=== PATIENT | male | born 1960 | race Caucasian/White ===

== ENCOUNTER 2018-08-26 15:41 | Inpatient (IN) | payer MEDICARE ==
[2018-08-26] MEDS ORDERED: SODIUM CHLORIDE 0.9% 1,000 ML IV STA (16:25)
[2018-08-26] MEDS ORDERED: SODIUM CHLORIDE 0.9% 500 ML 500 ML IV STA (16:25)
--- NOTE | 2018-08-26 16:33 | ED ---
Weakness HPI - General Chief complaint: Weakness Stated complaint: Poss bowel obstruction Time Seen by Provider: 08/26/18 16:15 Source: patient Mode of arrival: ambulatory Limitations: no limitations - History of Present Illness Initial comments: This 58-year-old white male presents with a complaint of generalized weakness. This apparently has been present for over 6 months. He is had decreased appetite and weight loss. He has lost approximately 50-60 pounds in the last 3 months. He states that he developed abdominal pain after eating. This is diffuse in nature. He does relate that he has a remote history of a crush injury to his leg. 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 He has been weak to the point where he cannot ambulate with crutches anymore. He states that he utilizes a rolling chair at home to get around. He denies any cough or shortness of breath. There is no fevers or chills. No other complaints or modifying factors. - Related Data Home Medications Medication Instructions Recorded Confirmed Lisinopril 20 mg PO DAILY 08/26/18 08/26/18 Morphine Sulfate ER [Ms Contin] 30 mg PO BID 08/26/18 08/26/18 Simvastatin [Zocor] 40 mg PO DAILY 08/26/18 08/26/18 Allergies Allergy/AdvReac Type Severity Reaction Status Date / Time No Known Allergies Allergy Verified 08/26/18 16:33 Review of Systems ROS Statement: Those systems with pertinent positive or pertinent negative responses have been documented in the HPI. ROS Other: All systems not noted in ROS Statement are negative. Past Medical History Past Medical History: Hyperlipidemia, Hypertension Additional Past Medical History / Comment(s): crush injury left leg History of Any Multi-Drug Resistant Organisms: None Reported Additional Past Surgical History / Comment(s): left leg repaired Past Psychological History: No Psychological Hx Reported Smoking Status: Current every day smoker Past Alcohol Use History: None Reported Past Drug Use History: None Reported General Exam - General Exam Comments Initial Comments: GENERAL: The patient appears cachectic and malnourished. VITAL SIGNS: Heart rate, blood pressure, respiratory rate reviewed as recorded in nurse's notes. EYES: Pupils are round and reactive. Extraocular movements are intact. No conjunctival / lid redness or swelling. ENT: No external evidence of injury, swelling, or ecchymosis. Airway is patent. Throat is clear. NECK: Nontender. No swelling or evidence of injury. No subcutaneous emphysema. Trachea is midline. No thyroid mass. HEART: Regular rate and rhythm. Good peripheral pulses. LUNGS/CHEST: Breath sounds clear and equal bilaterally. No rales, rhonchi, or wheezes. No ecchymosis, subcutaneous emphysema, or tenderness. ABDOMEN: Mild diffuse tenderness. No palpable masses or organomegaly. No peritoneal signs. No abdominal wall swelling or ecchymosis. EXTREMITIES: No extremity tenderness. Normal muscle tone and function. No thoracolumbar tenderness. NEUROLOGIC: Sensation is grossly intact. Cranial nerve exam reveals face is symmetrical, tongue is midline, speech is clear. Weakness noted to bilateral upper extremities which is equal. SKIN: No abrasions or ecchymosis is noted. No induration or masses noted. PSYCHIATRIC: Alert and oriented. Appropriate behavior and judgment. Limitations: no limitations Course Vital Signs 08/26/18 08/26/18 08/26/18 15:46 16:19 16:30 Temperature 98.2 F Pulse Rate 68 86 Respiratory 18 27 H 21 Rate Blood Pressure 134/81 134/106 O2 Sat by Pulse 94 L Oximetry 08/26/18 08/26/18 08/26/18 17:00 17:30 18:00 Temperature Pulse Rate 77 76 Respiratory 34 H 36 H Rate Blood Pressure 103/91 106/84 O2 Sat by Pulse 99 Oximetry 08/26/18 08/26/18 18:30 19:00 Temperature Pulse Rate 75 67 Respiratory 19 20 Rate Blood Pressure 92/79 96/70 O2 Sat by Pulse Oximetry Medical Decision Making - Medical Decision Making The patient was seen and examined. All diagnostics were reviewed. An EKG was done which shows a normal sinus rhythm at a rate of 84. There is no acute ST-T wave changes identified. The IA intervals 140, QRS duration is 80, and the QTC intervals 425. The laboratory is unremarkable. The computed tomography scan of the brain and chest x-ray does not show any acute processes. The computed tomography scan of the abdomen and pelvis shows evidence of a mass in the liver. The radiologist seems to think as though this may be related to a cavernous hemangioma but feels as though a MRI would be necessary for further evaluation. The exact cause of his symptoms is not definitively determined. It appears that he has significantly declined over the last 6 months. He is down to 57 kg and is apparently lost over 60 pounds in 3 months. He looks quite cachectic. He is weak to the point where he cannot ambulate. He states that he cannot take care of himself at home. He may need further workup to rule out any other etiologies or cancer that could be potentially causing his symptomatology. He may need placement. The case is discussed with Dr. Cano and he is agreeable to observation admission. - Lab Data Result diagrams: 08/26/18 16:43 08/26/18 16:43 Lab Results 08/26/18 08/26/18 08/26/18 Range/Units 16:43 16:43 16:43 WBC 7.5 (3.8-10.6) k/uL RBC 5.19 (4.30-5.90) m/uL Hgb 15.4 (13.0-17.5) gm/dL Hct 48.5 (39.0-53.0) % MCV 93.5 (80.0-100.0) fL MCH 29.7 (25.0-35.0) pg MCHC 31.8 (31.0-37.0) g/dL RDW 12.9 (11.5-15.5) % Plt Count 323 (150-450) k/uL Neutrophils % 65 % Lymphocytes % 27 % Monocytes % 5 % Eosinophils % 1 % Basophils % 0 % Neutrophils # 4.8 (1.3-7.7) k/uL Lymphocytes # 2.0 (1.0-4.8) k/uL Monocytes # 0.4 (0-1.0) k/uL Eosinophils # 0.1 (0-0.7) k/uL Basophils # 0.0 (0-0.2) k/uL PT 9.8 (9.0-12.0) sec INR 1.0 (<1.2) APTT 22.3 (22.0-30.0) sec Sodium 137 (137-145) mmol/L Potassium 4.9 (3.5-5.1) mmol/L Chloride 98 (98-107) mmol/L Carbon Dioxide 29 (22-30) mmol/L Anion Gap 10 mmol/L BUN 16 (9-20) mg/dL Creatinine 0.67 (0.66-1.25) mg/dL Est GFR (CKD-EPI)AfAm >90 (>60 ml/min/1.73 sqM) Est GFR (CKD-EPI)NonAf >90 (>60 ml/min/1.73 sqM) Glucose 96 (74-99) mg/dL Calcium 10.2 (8.4-10.2) mg/dL Phosphorus 3.6 (2.5-4.5) mg/dL Magnesium 2.1 (1.6-2.3) mg/dL Total Bilirubin 0.6 (0.2-1.3) mg/dL AST 31 (17-59) U/L ALT 41 (21-72) U/L Alkaline Phosphatase 77 (38-126) U/L Total Protein 6.9 (6.3-8.2) g/dL Albumin 4.4 (3.5-5.0) g/dL TSH 1.410 (0.465-4.680) mIU/L Disposition Clinical Impression: Weakness, Malnourished, Weight loss, Abdominal pain, Decreased appetite, Inability to walk, Liver lesion Disposition: ADMITTED IP TO THIS HOSP Condition: Fair Time of Disposition: 19:38
[2018-08-26 16:57] LABS: Basophils % (A) 0 %; Eosinophils # (A) 0.1 k/uL (0-0.7); Eosinophils % (A) 1 %; HCT 48.5 % (39.0-53.0); HGB 15.4 gm/dL (13.0-17.5); Lymphocytes % (A) 27 %; MCH 29.7 pg (25.0-35.0); MCHC 31.8 g/dL (31.0-37.0); MCV 93.5 fL (80.0-100.0); Mean Platelet Volume 6.4; Monocytes # (A) 0.4 k/uL (0-1.0); Monocytes % (A) 5 %; Neutrophils # (A) 4.8 k/uL (1.3-7.7); Neutrophils % (A) 65 %; Platelet Count 323 k/uL (150-450); RBC 5.19 m/uL (4.30-5.90); RDW 12.9 % (11.5-15.5); WBC 7.5 k/uL (3.8-10.6)
[2018-08-26 17:06] LABS: ALT 41 U/L (21-72); AST 31 U/L (17-59); Albumin 4.4 g/dL (3.5-5.0); Alkaline Phosphatase 77 U/L (38-126); Anion Gap 10 mmol/L; Blood Urea Nitrogen 16 mg/dL (9-20); Calcium 10.2 mg/dL (8.4-10.2); Carbon Dioxide 29 mmol/L (22-30); Chloride 98 mmol/L (98-107); Glucose 96 mg/dL (74-99); Magnesium 2.1 mg/dL (1.6-2.3); Phosphorus 3.6 mg/dL (2.5-4.5); Potassium 4.9 mmol/L (3.5-5.1); Sodium 137 mmol/L (137-145); Total Bilirubin 0.6 mg/dL (0.2-1.3); Total Protein 6.9 g/dL (6.3-8.2)
[2018-08-26 17:13] LABS: Partial Thromboplastin Time 22.3 sec (22.0-30.0); Prothrombin Time 9.8 sec (9.0-12.0)
--- NOTE | 2018-08-26 17:49 | XR ---
EXAMINATION: XR chest 2V DATE AND TIME: 08/26/2018 5:34 PM CLINICAL INDICATION: Weakness TECHNIQUE: PA and lateral COMPARISON: None. FINDINGS: The lungs are clear. The pleural spaces are negative. The cardiac silhouette is not enlarged. The remainder of the mediastinal silhouette is unremarkable. The skeletal structures and soft tissues are negative for acute findings. IMPRESSION: NO ACUTE PROCESS.
--- NOTE | 2018-08-26 17:52 | CT ---
EXAMINATION: CT brain wo con DATE AND TIME: 08/26/2018 5:36 PM CLINICAL INDICATION: Weakness. TECHNIQUE: Standard departmental protocol. COMPARISON: None. FINDINGS: The calvarium is intact. There is no intracranial hemorrhage. There is no intracranial mass or mass effect. No definite new intra-axial or extra-axial attenuation defect. The paranasal sinuses, middle ear cavities, and mastoid sinus air cells are clear. The orbits are unremarkable. IMPRESSION: NO ACUTE PROCESS.
--- NOTE | 2018-08-26 18:02 | CT ---
EXAMINATION TYPE: CT abdomen pelvis w con DATE OF EXAM: 08/26/2018 COMPARISON: None HISTORY: Weakness, constipation, decreased appetite and 60lb weight loss over past several months. CT DLP: 337.6 mGycm. Automated exposure control for dose reduction was used. TECHNIQUE: Helical acquisition of images was performed from the lung bases through the pelvis. CONTRAST: Performed without Oral Contrast and with IV Contrast, patient injected with 100 mL of Isovu e 300. FINDINGS: LUNG BASES: No significant abnormality is appreciated. LIVER/GB: At the dome of the diaphragm high in the posterior segment right hepatic lobe is a 3 cm low -attenuation lobulated lesion with peripheral puddling of contrast. This likely represents incidental cavernous hemangioma which can be proven using MRI. Liver is otherwise unremarkable. Biliary tree ne gative. PANCREAS: No significant abnormality is seen. SPLEEN: No significant abnormality is seen. ADRENALS: No significant abnormality is seen. KIDNEYS: No significant abnormality is seen. FREE AIR: No free air is visualized. RETROPERITONEAL ADENOPATHY: None visualized REPRODUCTIVE ORGANS: No significant abnormality is seen URINARY BLADDER: No significant abnormality is seen. PELVIC ADENOPATHY: None visualized. OSSEOUS STRUCTURES: No significant abnormality is seen. BOWEL: No significant abnormality is seen. VASCULATURE: No acute findings. IMPRESSION: 1) NO ACUTE PROCESS. 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 THIS CAN BE PROVEN WITH MRI.
[2018-08-26] MEDS ORDERED: ONDANSETRON 4 MG/2 ML VIAL IVP PRN (19:38)
[2018-08-26] MEDS ORDERED: ACETAMINOPHEN TAB 325 MG TAB PO PRN (19:38)
[2018-08-26 19:40] LABS: Appearance,Urine Clear (Clear); Bilirubin,Urine Negative (Negative); Blood,Urine Trace (Negative); Color,Urine Yellow; Glucose,Urine (UA) Negative (Negative); Hyaline Casts,Urine 1 /lpf (0-2); Ketones,Urine 1+ (Negative); Leukocyte Esterase,Urine Negative (Negative); Mucus,Urine Occasional /hpf; Nitrite,Urine Negative (Negative); PH, Urine 5.5 (5.0-8.0); Protein,Urine Trace (Negative); RBC,Urine 2 /hpf (0-5); Specific Gravity,Urine 1.044 (1.001-1.035); Squamous Epithelial Cell,Urine <1 /hpf (0-4); Urobilinogen,Urine <2.0 mg/dL (<2.0); WBC,Urine 1 /hpf (0-5)
[2018-08-26] MEDS ORDERED: NALOXONE 0.4 MG/ML 1 ML VIAL IV PRN (20:38)
[2018-08-26] MEDS ORDERED: MELATONIN 3 MG TABLET PO PRN (20:38)
[2018-08-26] MEDS ORDERED: HYDROcodone/APAP 5-325MG 1 EACH TAB PO PRN (20:38)
[2018-08-26] MEDS ORDERED: SENNOSIDES 8.6 MG TAB PO PRN (23:38)
--- NOTE | 2018-08-27 00:06 | P.HPIM ---
History of Present Illness H&P Date: 08/26/18 Chief Complaint: generalized progressive weakness, GI upset Patient presented to the hospital today due to progressive overall weakness, patient over the past 8 weeks has deteriorated significantly and became unable to ambulate associated with frequent falls due to severely progressive weakness of his right lower extremity. Patient also admitted that he's been having GI upset for over a year now every time he eats will feel abdominal discomfort for which she started to avoid food , he is eating very low calories very little amount of food to avoid the need to go to the bathroom. He reports that he is constipated most of the time but denies any GI bleeding or vomiting. Ports that he had colonoscopy done 10 years ago and reported to be normal Patient adds that he had a significant crush injury of his left lower extremity at work back in the . However over the past few years he starting having progressive muscle weakness and dystrophy of the muscles of his upper and lower extremities up until couple months ago he was able to ambulate using crutches however he was told that the crutches has caused nerve injury in his axillary plexus resulting in contractures and dystrophy and wasting of the muscles of his hands. Over the past 2 months he noticed progressive weakness of his good leg the right leg resulting in difficulty in ambulating or climbing any steps he needs to climb 5 steps to get into his house resulting in frequent falling. He reports that over the past 8 weeks he's been deteriorating very fast and he feels that the end is near. He otherwise denies any fevers or chills denies any memory problems denies any difficulties with speech or swallowing he denies any sensory changes or focal sensory deficits. He denies any back injury or head injury. He denies any nausea or vomiting. Denies any headache fevers or chills. Denies any coughing or hemoptysis or any GI bleeding. I had prolonged discussion with the patient I suspect that the patient might be having ALS, and will offer him neurologic evaluation. He is also given a have GI evaluation for possible scoping and to evaluate the incidental finding of liver mass on CAT scan which is suspected to be a hemangioma. Patient will also be offered PT/OT evaluation, he indicated that he is not interested in placement at long-term but he would be interested in home care as he is unable to perform any of the activities of daily living and his works most of the time and he is home alone. Review of Systems Pertinent positives as noted in HPI. All other systems were reviewed and are negative Past Medical History Past Medical History: Hyperlipidemia, Hypertension Additional Past Medical History / Comment(s): crush injury left leg History of Any Multi-Drug Resistant Organisms: None Reported Additional Past Surgical History / Comment(s): left leg repaired Past Psychological History: No Psychological Hx Reported Smoking Status: Current every day smoker Past Alcohol Use History: None Reported Past Drug Use History: None Reported - Past Family History Family Additional Family Medical History / Comment(s): Both parents of very old age and healthy Medications and Allergies Home Medications Medication Instructions Recorded Confirmed Type Lisinopril 20 mg PO DAILY 08/26/18 08/26/18 History Morphine Sulfate ER [Ms Contin] 30 mg PO BID 08/26/18 08/26/18 History Simvastatin [Zocor] 40 mg PO DAILY 08/26/18 08/26/18 History Allergies Allergy/AdvReac Type Severity Reaction Status Date / Time No Known Allergies Allergy Verified 08/26/18 16:33 Physical Exam Vitals: Vital Signs Temp Pulse Resp BP Pulse Ox 08/26/18 19:00 67 20 96/70 08/26/18 18:30 75 19 92/79 08/26/18 18:00 76 36 H 08/26/18 17:30 106/84 08/26/18 17:00 77 34 H 103/91 99 08/26/18 16:30 86 21 134/106 08/26/18 16:19 27 H 08/26/18 15:46 98.2 F 68 18 134/81 94 L Intake and Output 08/26/18 08/26/18 08/26/18 06:59 14:59 22:59 Other: Weight 57.153 kg Constitutional: No acute distress, conversant, pleasant, cachectic Eyes: Anicteric sclerae, moist conjunctiva, no lid-lag Pupils equal round reactive to light ENMT: NC/AT Oropharynx clear, no erythema, exudates Neck: Supple, FROM, no masses, or JVD No carotid bruits No thyromegaly Lungs: Clear to auscultation Clear to percussion Normal respiratory effort, no accessory muscle use Cardiovascular: Heart regular in rate and rhythm, No murmurs, gallops, or rubs No peripheral edema Abdominal: Soft Nontender, no guarding, rebound or rigidity Abdomen moving with respiration Normoactive bowel sounds No hepatomegaly, No splenomegaly No palpable mass No abdominal wall hernia noted Skin: Normal temperature, tone, texture, turgor No induration No subcutaneous nodules No rash, lesions No ulcers Extremities: Contractures in both hands, muscle wasting and hearing over the dorsum of the hand, wasting of the muscles of lower extremities. No digital cyanosis No clubbing Pedal pulses intact and symmetrical Radial pulses intact and symmetrical No calf tenderness Psychiatric: Alert and oriented to person, place and time Appropriate affect fair judgment Neuro Muscles Strength 2/5 in distal muscle groups of lower extremities and 3 out of 5 in proximal muscle groups of lower extremities . 3 out of 5 in distal muscle groups of upper extremities and 4 out of 5 in proximal muscle groups of upper extremities Sensation to light touch grossly present throughout, reflexes are brisk throughout Cranial nerves II-XII grossly intact No focal sensory deficits Speech is intact, tongue movement is intact Lymphatics: no palpable cervical or supraclavicular , or inguinal lymph nodes Results CBC & Chem 7: 08/26/18 16:43 08/26/18 16:43 Labs: Abnormal Lab Results - Last 24 Hours (Table) 08/26/18 Range/Units 19:04 Ur Specific [place] 1.044 H (1.001-1.035) Urine Protein Trace H (Negative) Urine Ketones 1+ H (Negative) Urine Blood Trace H (Negative) Urine Mucus Occasional H (None) /hpf Assessment and Plan Assessment: 58 year old male with history of hypertension and left lower extremity RSD, admitted under observation with anticipated length of stay ,<48 hours for significant weight loss, generalized weakness, GI upset. patient has been having progressive muscle wasting and weakness in his upper and lower extremities with frequent falling over the past 6 weeks, I thought he clinically has ALS. Patient also reports GI upset, and significant weight loss due to poor apetite, his last colonoscopy was 10 years ago which he reports was normal. consitpation could be due to morphine PO, which he takes for RSD. patient is offered neuro and GI evaluation. PT/OT evaluation he refuses placement , and preferred home health care, he would benefit from home supplies like hospital bed and bedside comode, he is unable to perform any of his ADL Plan: progressive muscle dystrophy and weakness suspected ALS reflexes are brisk sensation intact contractures of bilateral hands, distal muscle weakness in upper extremities distal more than proximal muscle weakness in right lower extremity muscle wasting weight loss fall precautions turning in bed and sitting up in chair PT/OT evaluation social worker health services consult to arrange for home health care, patient refused placement patient will require supplies like hospital bed, bedside comode reflex sympathetic dysrophy left LE continue morphine PO (home dose) constipation add stool softners hypertension currently controlled suspected liver hemangioma radiology suggested liver MRI , not ordered GI eval DVT PPX lovenox SC significant weight loss, due to Poor PO intake , r/o malignancy Cscope 10 years ago , patient reported was wnl denies gi bleeding, denies hemoptysis or chronic cough start megace add ensure avoid refeeding syndrome , follow up electrolytes, PO4, Mg, Ca, K Surrogate decision-maker: patient CODE STATUS:full code Discussed with: Patient, ER, RN Anticipated discharge: <[address]: home with home care, will need hospital bed, and bed side comode, wheel chair (scooter) A total of 90 minutes were spent on the care of this complex patient more than 50% of the time was spent in counseling and care coordination.
[2018-08-27] MEDS: PANTOPRAZOLE 40 MG/10 ML VIAL IV SCH ×2 (00:09→09:19)
[2018-08-27 07:19] LABS: Basophils % (A) 1 %; Eosinophils # (A) 0.2 k/uL (0-0.7); Eosinophils % (A) 4 %; HCT 40.5 % (39.0-53.0); HGB 12.7 gm/dL (13.0-17.5); Lymphocytes # (A) 2.6 k/uL (1.0-4.8); Lymphocytes % (A) 43 %; MCH 29.5 pg (25.0-35.0); MCHC 31.3 g/dL (31.0-37.0); MCV 94.1 fL (80.0-100.0); Mean Platelet Volume 6.7; Monocytes # (A) 0.4 k/uL (0-1.0); Monocytes % (A) 6 %; Neutrophils # (A) 2.7 k/uL (1.3-7.7); Neutrophils % (A) 45 %; Platelet Count 255 k/uL (150-450); RDW 12.9 % (11.5-15.5)
[2018-08-27 07:29] LABS: ALT 42 U/L (21-72); AST 25 U/L (17-59); Albumin 3.3 g/dL (3.5-5.0); Alkaline Phosphatase 50 U/L (38-126); Anion Gap 5 mmol/L; Blood Urea Nitrogen 12 mg/dL (9-20); Calcium 9.4 mg/dL (8.4-10.2); Carbon Dioxide 30 mmol/L (22-30); Chloride 102 mmol/L (98-107); Glucose 80 mg/dL (74-99); Potassium 4.3 mmol/L (3.5-5.1); Sodium 137 mmol/L (137-145); Total Bilirubin 0.5 mg/dL (0.2-1.3); Total Protein 5.5 g/dL (6.3-8.2)
[2018-08-27] MEDS: LISINOPRIL 20 MG TAB PO SCH (09:18)
[2018-08-27] MEDS: ATORVASTATIN 20 MG TAB PO SCH (09:18)
[2018-08-27] MEDS: MORPHINE SULFATE ER 30 MG TABLET PO SCH ×2 (09:18→21:07)
[2018-08-27] MEDS: DOCUSATE 100 MG CAP PO SCH ×2 (09:18→21:07)
[2018-08-27] MEDS: ENOXAPARIN 40 MG/0.4 ML SYRINGE SQ SCH (09:19)
[2018-08-27 10:45] VITALS: BMI 16.2
[2018-08-27 11:28] LABS: C Reactive Protein <5.0 mg/L (<10.0); Creatine Kinase 83 U/L (55-170); LDH 315 U/L (313-618)
--- NOTE | 2018-08-27 12:01 | P.PN ---
Subjective Progress Note Date: 08/27/18 Principal diagnosis: weakness and weight loss Patient is a 58-year-old male known medical history of dyslipidemia, hypertension, crush injury to left leg resulting in RSD who presented to the ER with complaints of frequent falls, severe progressive weakness, and inability to care for himself. In the ER he underwent an extensive evaluation. His initial vital signs were within normal limits. Laboratory analysis is unremarkable. CT of abdomen and pelvis demonstrated a 3 cm right hepatic lobe lesion likely cavernous hemangioma, patient states that he was told he had a hemangioma when he had his crush injury [address] brain and chest x-ray were unremarkable. EKG showed no changes. Patient was admitted for further workup of his progressive weakness. He also has reported a 60 pound weight loss despite what he said it is a normal appetite. GI and neurology have been consulted. Patient seen and examined at bedside with his life partner, Kezia, present. He denies any pain. Weakness is the same as yesterday. No nausea or vomiting. Slightly low appetite. Frustrated that stuck in the bed earlier today. We have a long discussion. He states that initially his symptoms started in 2016 with bilateral upper extremity weakness. At that point in time. EMG performed and subsequently was seen by a neurosurgeon. He states they told him he had a brachial plexus injury and asked him to stop using his crutches. Since then he has been himself off his crutches and mostly stayed in a rolling dining chair at home. However since the summertime he has. Had progressive weakness and weight loss. He has also had progressive contractures of his fingers, loss of muscle strength in his hands, and inability to get himself out of bed. He currently has to sleep on the couch. He states he had clear and home care recently who suggested multiple assistive devices as he is unable to feed himself, take himself to the bathroom, or perform ADLs. However they sent a letter to his workers comp which has yet to be answered. He is unable to care for himself at home currently and no longer has home health care coming out to see him. We discussed that he likely will need an extensive workup to figure out why he is having muscle atrophy and weakness. I also discussed with him the concern that this could be something like ALS. We will proceed with an MRI today and a neurology consultation. He is also nervous about his weight loss which I explained could be a symptom of his larger disease process however we will have gastroenterology evaluate him. He states he knows he had a hemangioma when he suffered his crush injury. He is no longer able to get out of the house to attend doctor's appointments. I discussed with him going with something like [facility] to have the doctors that can come out and see him. He does not want to go to a penitentiary home or long- term halfway. He states that if he is diagnosed with a chronic debilitating illness he would not want to be kept alive like that area once he neurology sees him we will discuss further treatment options. I also spoke with case management to start getting information on getting him home assistive devices. He is unable to ambulate at this time, he is unable to get onto the toilet himself, he is using a rolling dining room chair all times to move around , he is unable to feed or dress himself. He is not able to sleep in his bed due to his profound debility and weakness. He will likely need multiple assistive devices including a toilet riser, bedside commode, shower chair, travel wheelchair, bed rails to assist with getting out of bed, possible lift, wheelchair ramp for at home. He also likely would benefit from a power wheelchair with the toggle device. Objective - Vital Signs Vital signs: Vital Signs Temp 97.6 F 08/27/18 04:42 Pulse 58 L 08/27/18 04:42 Resp 16 08/27/18 04:42 BP 101/59 08/27/18 04:42 Pulse Ox 97 08/27/18 04:42 Intake & Output 08/26/18 08/27/18 08/27/18 18:59 06:59 18:59 Intake Total 590 Balance 590 Weight 57.153 kg 54.5 kg Intake: Oral 590 Other: Voiding Method Urinal Urinal # Voids 2 - Exam General: chronically ill appearing, no distress, appears at stated age Derm: warm, dry Head: atraumatic, normocephalic, symmetric Eyes: EOMI, no lid lag, anicteric sclera Mouth: no lip lesion, mucus membranes dry Cardiovascular: S1S2 reg, no murmur, positive posterior tibial pulse bilateral, Lungs: decreased bs bilateral, no rhonchi, no rales , no accessory muscle use Abdominal: soft, nontender to palpation, no guarding, no appreciable organomegaly Ext: + gross muscle atrophy, no edema, + contractures of b/l hands Neuro: CN II-XI grossly intact, no focal neuro deficits, musce wasting b/l hands Psych: Alert, oriented, appropriate affect - Labs CBC & Chem 7: 08/27/18 06:34 08/27/18 06:34 Labs: Abnormal Lab Results - Last 24 Hours (Table) 08/26/18 08/27/18 08/27/18 Range/Units 19:04 06:34 06:34 Hgb 12.7 L (13.0-17.5) gm/dL Total Protein 5.5 L (6.3-8.2) g/dL Albumin 3.3 L (3.5-5.0) g/dL Ur Specific [place] 1.044 H (1.001-1.035) Urine Protein Trace H (Negative) Urine Ketones 1+ H (Negative) Urine Blood Trace H (Negative) Urine Mucus Occasional H (None) /hpf Assessment and Plan Assessment: Progressive symmetric upper and lower extremity weakness -Concern for ALS versus other demyelinating process -MRI brain -Consult neurology -Check ESR, CRP, LDH, and CPK of myopathy -PT/OT evaluation -Discussed with case management. Multiple devices needed as outlined in subjective portion of this note. Functional debility/ Inability to care for self -PT/OT eval -Case management - social work consult Severe protein calorie malnutrition with muscle wasting -Dietary consultation -Protein supplementation Hypertension -Continue with lisinopril Dyslipidemia -Continue with statin therapy Chronic pain -Continue with home morphine doses DVT prophylaxis: Lovenox Discussed with: Patient, nursing, significant other, case management Anticipated discharge: 48- 72 hours, will need safe discharge plan Anticipated discharge place: home with home health A total of [65] minutes was spent on the care of this complex patient more than 50% of the time was spent in counseling and care coordination.
[2018-08-27] MEDS ORDERED: NA PHOS,M-B/NA PHOS,DI-BA 133 ML ENEMA RECTAL ONE ×2 (14:00→16:30)
--- NOTE | 2018-08-27 17:58 | MR ---
EXAMINATION TYPE: MR brain wo con DATE OF EXAM: 08/27/2018 COMPARISON: CT brain dated 08/26/2018 HISTORY: Progressive weakness, CVA, Multiple Sclerosis TECHNIQUE: Multiplanar, multisequence images of the brain and brainstem is performed without IV contrast. Demye linating disease protocol with additional Sagittal Flair sequence performed. FINDINGS: Diffusion weighted images demonstrate no evidence of a recent infarct or other diffusion abnormality. There is no worrisome extra-axial fluid collection. The ventricular system and cisternal spaces ar e normal in size and appearance. Very mild periventricular T2/FLAIR hyperintensity is seen with no me asurable to minus lesions. White matter changes most pronounced in the periatrial white matter which is on sagittal FLAIR nonfat sat through 6 and 1 image 26 and axial flair image 15. The brain volume i s age appropriate. Midline structures demonstrate normal morphology other than a 7 mm pineal gland cyst. The craniocerv ical junction appears within normal limits.. The dural venous sinuses appear patent. The visualized sinuses are clear and the globes are intact. IMPRESSION: No evidence of acute infarct, dementia or mass effect. Very mild periventricular white ma tter change most pronounced in the periatrial white matter with no white matter plaques.
[2018-08-27 18:27] LABS: HIV 1 AB Non-Reactive (Non-Reactive); HIV AB P24 Non-Reactive (Non-Reactive); HIV P24 AG Non-Reactive (Non-Reactive)
--- NOTE | 2018-08-27 20:17 | P.CNNES ---
History of Present Illness Consult date: 08/27/18 Reason for Consult: This patient admitted with severe weakness and possible ALS. History of Present Illness: This patient is a 58-year-old right-handed white male who was admitted to [facility] yesterday with symptoms of worsening generalized weakness and multiple falls. Patient states that he has been having progressive weakness over the last 2 years. More recently in the last 6-8 weeks that fatigue and weakness as overcome his general health causing him great deal of concern. He follows with his primary care physician Dr. Dee and was seen in the medical clinic about 2 months ago. 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 Patient states he has been noticing progressive weakness in both his arms and legs. He is had multiple falls due to generalized weakness. He has a history of having suffered a crush injury about 20 years ago causing injury to his left foot and ankle. He suddenly developed RSD as a complication of this crush injury. More recently however he has noted significant weight loss over the last 6 months as well as ongoing weakness in his leg muscles. His who is at bedside today states that she has noted a progressive and rapid decline for this patient over the last few months. The patient was seen in the emergency room yesterday by Dr. Stout. Patient was found to have significant malnourishment as well as generalized weakness. He complained of inability to walk. According to his he was walking with crutches but even in the last month he has been unable to even ambulate with the assistance of crutches. She is attempting to get a power wheelchair for him to use. The patient denies any swallowing difficulties at this time. He does have some cough but denies any shortness of breath as well. Due to his significant decline the patient was admitted to the hospital for further evaluation. The patient was sent for a computed tomography scan of the brain which revealed no acute process. Patient was subtotally admitted to the hospital for further evaluation. He had a MRI of the brain performed today which revealed no evidence of acute infarction. The patient was seen yesterday by Dr. Greenfield in today by Dr. Haney and they have both brace the question of possible ALS as a diagnosis for this patient. Neurology was consulted today for further evaluation of this possible diagnosis. On further questioning the patient clearly states he has had significant weight loss in the last 6 months. He is also complained of increasing fasciculations involving both arm and leg and chest muscles on and off for the last 2 years. It is becoming more pronounced according to the patient and can be seen in the arms and legs especially. According to his he has lost about 60 pounds in weight since the beginning of the year. The patient has significant atrophy of his hand muscles. Close observation of the hand and arm muscles indicate fasciculations in the interossei muscles of the hand as well as biceps and triceps muscles. Patient is also noted to have fasciculations in both lower extremities. We have reviewed this patient's overall presentation and current neurological findings and have raised the question of possible amyotrophic lateral sclerosis (i.e., Marilyn Gehrig's Disease). This patient's neurological exam findings and history are highly suggesting this is a probable diagnosis for him. We are recommending the patient to be referred to the ALS Clinic at [facility] early next week for a more extensive evaluation for this condition an EMG study to confirm the diagnosis. We would also recommend the patient to have an MRI of the cervical spine to be done as soon as possible for further assessment. We have described to the patient to the best of our ability the condition of ALS and its presentation. To be definitive in this diagnosis however he would require referral to [facility] ALS clinic and a multi- specialty approach for this diagnosis. We have discussed these findings in detail today with the patient and his at bedside. All of their questions were answered. Patient is aware of our recommendations and is in full agreement with our workup at this time. His overall prognosis at this time remains guarded. Neurology is now been consulted for further evaluation and recommendations. Review of Systems Constitutional: Reports anorexia, Reports weight loss, Denies chills, Denies fever Eyes: denies blurred vision, denies pain Ears, nose, mouth and throat: Denies headache, Denies sore throat Cardiovascular: Denies chest pain, Denies shortness of breath Respiratory: Denies cough Gastrointestinal: Denies abdominal pain, Denies diarrhea, Denies nausea, Denies vomiting Musculoskeletal: Denies myalgias Integumentary: Denies pruritus, Denies rash Neurological: Reports gait dysfunction, Reports lack of coordination, Reports motor disturbance, Reports sensory deficit, Denies numbness, Denies weakness Psychiatric: Denies anxiety, Denies depression Endocrine: Denies fatigue, Denies weight change Past Medical History Past Medical History: Hyperlipidemia, Hypertension Additional Past Medical History / Comment(s): crush injury left leg History of Any Multi-Drug Resistant Organisms: None Reported Past Surgical History: Orthopedic Surgery Additional Past Surgical History / Comment(s): left leg repaired Past Anesthesia/Blood Transfusion Reactions: No Reported Reaction Past Psychological History: No Psychological Hx Reported Smoking Status: Current every day smoker Past Alcohol Use History: None Reported Past Drug Use History: None Reported - Past Family History Mother Family Medical History: No Reported History Additional Family Medical History / Comment(s): healthy and still living at 92 Father Family Medical History: No Reported History Additional Family Medical History / Comment(s): passes at 84 Family Additional Family Medical History / Comment(s): Both parents of very old age and healthy Medications and Allergies Home Medications Medication Instructions Recorded Confirmed Type Lisinopril 20 mg PO DAILY 08/26/18 08/26/18 History Morphine Sulfate ER [Ms Contin] 30 mg PO BID 08/26/18 08/26/18 History Simvastatin [Zocor] 40 mg PO DAILY 08/26/18 08/26/18 History Allergies Allergy/AdvReac Type Severity Reaction Status Date / Time No Known Allergies Allergy Verified 08/26/18 16:33 Physical Examination - Vital Signs Vital Signs: Vital Signs Temp Pulse Pulse Resp BP BP Pulse Ox 08/27/18 15:33 70 16 08/27/18 15:01 98 F 70 16 123/79 98 08/27/18 04:42 97.6 F 58 L 16 101/59 97 08/26/18 23:30 97.8 F 84 16 131/83 98 08/26/18 22:00 70 33 H 92/68 08/26/18 21:00 71 22 87/58 08/26/18 20:00 64 24 114/81 08/26/18 19:00 67 20 96/70 08/26/18 18:30 75 19 92/79 08/26/18 18:00 76 36 H 08/26/18 17:30 106/84 Intake and Output 08/27/18 08/27/18 08/27/18 06:59 14:59 22:59 Intake Total 590 600 Balance 590 600 Intake: Oral 590 600 Other: Voiding Method Urinal Urinal Urinal # Voids 2 3 3 Weight 54.5 kg 54.5 kg - Constitutional General appearance: average body habitus, cooperative - EENT EENT: PERRL, mucous membranes moist - Respiratory Respiratory: lungs clear, normal breath sounds - Cardiovascular Cardiovascular: regular rate, normal S1, normal S2 Extremities: no peripheral edema bilaterally - Gastrointestinal Gastrointestinal: normoactive bowel sounds - Integumentary Integumentary: normal - Neurologic Cranial nerve examination: PERRL, EOMI, VFF, V1/V2/V3 grossly intact, face symmetric, tongue midline, intact gag reflex, intact corneal reflex, normal palatal elevation Speech examination: intact Sensorimotor examination: intact Motor examination - right side: 11/29: biceps, triceps, wrist flexion, wrist extension, print support specialist, hip flexors, knee extensors, dorsiflexion, toe extension (EHL) , plantarflexion Motor examination - left side: 11/29: biceps, triceps, wrist flexion, wrist extension, print support specialist, hip flexors, knee extensors, dorsiflexion, toe extension (EHL) , plantarflexion Detailed sensory examination: intact Reflex and gait examination: intact Reflexes: 2+: ankle, bicep, knee, tricep Cerebellar examination: ataxia - Musculoskeletal Musculoskeletal: no pain - Psychiatric Psychiatric: mood/affect appropriate, cooperative Results - Laboratory Findings CBC and BMP: 08/27/18 06:34 08/27/18 06:34 Abnormal Lab Findings: Abnormal Labs 08/26/18 08/27/18 08/27/18 19:04 06:34 06:34 Hgb 12.7 L Total Protein 5.5 L Albumin 3.3 L Ur Specific [place] 1.044 H Urine Protein Trace H Urine Ketones 1+ H Urine Blood Trace H Urine Mucus Occasional H Assessment and Plan (1) Motor neuron disease Current Visit: Yes Status: Acute Code(s): G12.20 - MOTOR NEURON DISEASE, UNSPECIFIED SNOMED Code(s): 60234503 (2) Muscle atrophy Current Visit: Yes Status: Acute Code(s): M62.50 - MUSCLE WASTING AND ATROPHY, NEC, UNSP SITE SNOMED Code(s): 45060966 (3) Inability to walk Current Visit: Yes Status: Acute Code(s): R26.2 - DIFFICULTY IN WALKING, NOT ELSEWHERE CLASSIFIED SNOMED Code(s): 021164236 (4) Weakness Current Visit: Yes Status: Acute Code(s): R53.1 - WEAKNESS SNOMED Code(s) : 45690428 (5) Weight loss Current Visit: Yes Status: Acute Code(s): R63.4 - ABNORMAL WEIGHT LOSS SNOMED Code(s): 62217076 Plan: This patient is a 58-year-old male who is been noted to have progressive generalized muscle weakness and muscle atrophy over the last 2 years. More recently in 6 months he has shown a very rapid decline in weight loss as well as inability to ambulate. He decided to come to the hospital yesterday for further evaluation. He is seen in neurology consultation today and his neurological exam is highly suggesting motor neuron disease such as ALS. We have recommended the patient to be evaluated in the ALS Clinic at [facility] for further confirmation of this suspicion and possible diagnosis. The patient underwent MRI of the brain which failed to reveal any acute changes. No evidence of acute infarction. We have recommended a MRI of the cervical spine to be done for further assessment. This patient's neurological exam and clinical findings of significant muscle wasting and muscle atrophy along with whole body fasciculations and profound weakness is highly suggesting a diagnosis of ALS. We have explained the natural history of this disease in detail to the patient and his at bedside. We are recommending the patient to have a evaluation in the ALS clinic at [facility] as soon as possible next week further more definitive workup for this condition including EMG study. We've also encouraged the to seek out social work and discharge planning to obtain a power wheelchair which would be very helpful for this patient. We will give further recommendations pending his MRI of the cervical spine results. In the meantime patient may continue with current treatment plans but really needs further workup and confirmation of this possible diagnosis at [facility] as soon as possible. His overall prognosis at this time remains very guarded. Case was discussed at length with the patient and his at bedside. All of their questions were answered. They are aware of his guarded condition. Time with Patient: Greater than 30
--- NOTE | 2018-08-28 02:46 | P.CONS ---
History of Present Illness - Reason for Consult Consult date: 08/27/18 Constipation, weight lossstar greenfield Requesting physician: Gissell Greenfield - Chief Complaint Weakness - History of Present Illness 58-year-old male with multiple medical comorbidities including the, hypertension and dyslipidemia who presents to the hospital with progressive weakness. Per the patient he has deteriorated significantly over the past 8 weeks. The patient reports a constellation of symptoms including decreased oral intake, which she attributes to a upset stomach after eating. He reports that he has epigastric discomfort after eating. Nausea reported but denies any vomiting. The patient also reports significant constipation which is likely attributed to his opiate use. He reports that he has been tried on multiple medications in the past including MiraLAX which she did not feel helped and [place] which the patient did not react to well. He reports very infrequent bowel movements. He denies any hematochezia or melena. His last colonoscopy was approximately 10 years ago. He has had significant weight loss describing approximately 50-60 pounds of weight loss over the past 3 months. Currently he is been seen in the hospital and evaluated by the neurology service. He also had a computed tomography scan on presentation which showed a likely liver hemangioma. Liver enzymes were essentially normal on presentation and hemoglobin was found to be 12.3. Review of Systems REVIEW OF SYSTEMS: CARDIO: Denies any chest pain or palpitations. PULMONARY: Denies any shortness of breath or wheezing. GENITOURINARY: No dysuria or hematuria. MUSCULOSKELETAL: Significant weakness, the patient is unable to ambulate with crutches as previously. SKIN: Denies any new rashes or lesions, jaundice or pallor. PSYCHIATRIC: Denies any new onset depression or anxiety. NEUROLOGY: Denies headache, bilateral contracted hands and limited mobility of legs with a prior crush injury noted. EARS: No tinnitus, discharge or new hearing loss. NOSE: No discharge or congestion. EYES: No pain in eyes or change in vision. CONSTITUTIONAL: He notes approximately a 60 pound weight loss. No fever, chills , night sweats. Past Medical History Past Medical History: Hyperlipidemia, Hypertension Additional Past Medical History / Comment(s): crush injury left leg History of Any Multi-Drug Resistant Organisms: None Reported Past Surgical History: Orthopedic Surgery Additional Past Surgical History / Comment(s): left leg repaired Past Anesthesia/Blood Transfusion Reactions: No Reported Reaction Past Psychological History: No Psychological Hx Reported Smoking Status: Current every day smoker Past Alcohol Use History: None Reported Past Drug Use History: None Reported - Past Family History Mother Family Medical History: No Reported History Additional Family Medical History / Comment(s): healthy and still living at 92 Father Family Medical History: No Reported History Additional Family Medical History / Comment(s): passes at 84 Family Additional Family Medical History / Comment(s): Both parents of very old age and healthy Medications and Allergies Home Medications Medication Instructions Recorded Confirmed Type Lisinopril 20 mg PO DAILY 08/26/18 08/26/18 History Morphine Sulfate ER [Ms Contin] 30 mg PO BID 08/26/18 08/26/18 History Simvastatin [Zocor] 40 mg PO DAILY 08/26/18 08/26/18 History Allergies Allergy/AdvReac Type Severity Reaction Status Date / Time No Known Allergies Allergy Verified 08/26/18 16:33 Physical Exam Vitals: Vital Signs Temp Pulse Resp BP Pulse Ox 08/27/18 15:33 70 16 08/27/18 15:01 98 F 70 16 123/79 98 08/27/18 04:42 97.6 F 58 L 16 101/59 97 Intake and Output 08/27/18 08/27/18 08/28/18 14:59 22:59 06:59 Intake Total 600 960 Balance 600 960 Intake: Oral 600 960 Other: Voiding Method Urinal Urinal Urinal # Voids 3 1 Weight 54.5 kg On physical examination, patient appears comfortable in no apparent distress. HEAD: Normocephalic, atraumatic. EYES: No scleral icterus. No conjunctival injection. MOUTH: No lesions, tongue midline. NECK: Trachea midline, no gross abnormalities. CHEST: Clear to auscultation with no wheezing or rhonchi appreciated. HEART: Regular rate and rhythm. ABDOMEN: Soft, and then. Bowel sounds are positive. No organomegaly. No guarding or rigidity. EXTREMITIES: No pedal edema, lower extremities thin, and contracted upper extremities with muscle wasting noted. SKIN: No rashes, no jaundice. NEUROLOGIC: Alert and oriented x3. Results CBC & Chem 7: 08/27/18 06:34 08/27/18 06:34 Labs: Abnormal Lab Results - Last 24 Hours (Table) 08/27/18 08/27/18 Range/Units 06:34 06:34 Hgb 12.7 L (13.0-17.5) gm/dL Total Protein 5.5 L (6.3-8.2) g/dL Albumin 3.3 L (3.5-5.0) g/dL CT scan - abdomen: report reviewed (Computed tomography scan of the abdomen showing a 3 cm lesion suggestive of a cavernous hemangioma) Assessment and Plan (1) Weight loss Narrative/Plan: 60 pound weight loss of unknown etiology, with patient reporting a prior colonoscopy approximately 10 years ago and a remote history of upper endoscopy. Denies any GI bleeding. Current Visit: Yes Status: Acute Code(s): R63.4 - ABNORMAL WEIGHT LOSS SNOMED Code(s): 14557801 (2) Abdominal pain Narrative/Plan: Reports epigastric discomfort and fullness after eating. Current Visit: Yes Status: Acute Code(s): R10.9 - UNSPECIFIED ABDOMINAL PAIN SNOMED Code(s): 31744736 (3) Liver lesion Narrative/Plan: 3 cm lesion on computed tomography scan suggestive of cavernous angioma. Current Visit: Yes Status: Acute Code(s): K76.9 - LIVER DISEASE, UNSPECIFIED SNOMED Code(s): 593021319 (4) Constipation due to opioid therapy Current Visit: Yes Status: Acute Code(s): K59.03 - DRUG INDUCED CONSTIPATION ; T40.2X5A - ADVERSE EFFECT OF OTHER OPIOIDS, INITIAL ENCOUNTER SNOMED Code(s) : 468509753321100 Plan: Supportive care Okay for diet Fleets enema ordered as patient reports constipation Will start bowel regimen depending on patient's bowel movements after enema Patient offered EGD and colonoscopy for evaluation of weight loss however does not feel he would be able to tolerate a prep at this time, he would like to have his constipation treated and then reevaluation for possible endoscopy Continue workup by neurology Thank you for allowing us to persist patient in the care of this patient we will continue to follow
[2018-08-28] MEDS: ATORVASTATIN 20 MG TAB PO SCH (08:16)
[2018-08-28] MEDS: LISINOPRIL 20 MG TAB PO SCH (08:16)
[2018-08-28] MEDS: DOCUSATE 100 MG CAP PO SCH ×2 (08:16→21:12)
[2018-08-28] MEDS: MORPHINE SULFATE ER 30 MG TABLET PO SCH ×2 (08:16→21:12)
[2018-08-28] MEDS: PANTOPRAZOLE 40 MG/10 ML VIAL IV SCH (08:17)
[2018-08-28] MEDS: ENOXAPARIN 40 MG/0.4 ML SYRINGE SQ SCH (08:17)
[2018-08-28] MEDS ORDERED: HYDROcodone/APAP 7.5-325MG 1 EACH TAB PO PRN (09:30)
[2018-08-28] MEDS ORDERED: ALPRAZolam 0.5 MG TAB PO PRN (09:30)
[2018-08-28] MEDS ORDERED: guaiFENesin 600 MG TABLET.ER PO PRN (10:05)
--- NOTE | 2018-08-28 10:21 | P.PN ---
Subjective Progress Note Date: 08/28/18 (Delayed charting patient seen at 0850) Principal diagnosis: weakness and weight loss Patient is a 58-year-old male known medical history of dyslipidemia, hypertension, crush injury to left leg resulting in RSD who presented to the ER with complaints of frequent falls, severe progressive weakness, and inability to care for himself. In the ER he underwent an extensive evaluation. His initial vital signs were within normal limits. Laboratory analysis is unremarkable. CT of abdomen and pelvis demonstrated a 3 cm right hepatic lobe lesion likely cavernous hemangioma, patient states that he was told he had a hemangioma when he had his crush injury [address] brain and chest x-ray were unremarkable. EKG showed no changes. Patient was admitted for further workup of his progressive weakness. He also has reported a 60 pound weight loss despite what he said it is a normal appetite. GI and neurology were consulted. Patient seen by neurology and concern for ALS. MRI with mild white matter periventricular changes. Patient seen and examined at bedside with his life partner, Kezia, present. States he is feeling terrible today. Complains of increased pain. Still having some nausea, doesn't like the food, doesn't like the bed. States he can' t move in the bed and it is making him anxious and upset. Worried about diagnosis of ALS. D/W Him F/U with ALS clinic. Wants to leave the hospital stay to receive MRI cervical spine, meet with social work in the morning, and get more information on community resources. That along discussion at that he will need close follow-up in order to get the device is he needs. They will need to continue to follow with his Worker's Comp. case in order to get more assistive devices. Understands the improtane of follow-up. Was reading on ALS and states that he has most of the symptoms, progressive weakness, contractures, weight loss, difficulty with controlling phlegm production, muscle wasting ect. Discussed prognosis and expected outcomes of care, new medications that can slow the progression of the disease, clinical trails, and symptoms management. Also discussed filing for power of immigration attorney and FMLA. Discussed purchasing additional help at home. Does not want to go to SNF and discussed with him that if disease progresses he may want to save days till later. Also upset with GI and does not want to see them again. Constipation resolved after enema. D/W patient that weight loss could be coming for nerodegenerative disease and work this up first if it does not appear to be coming from this then consider colonoscopy and age appropriate cancer screening. Objective - Vital Signs Vital signs: Vital Signs Temp 97.7 F 08/28/18 05:00 Pulse 76 08/28/18 05:00 Resp 16 08/28/18 05:00 BP 113/63 08/28/18 05:00 Pulse Ox 97 08/28/18 05:00 Intake & Output 08/27/18 08/28/18 08/28/18 18:59 06:59 18:59 Intake Total 1560 120 Balance 1560 120 Weight 54.5 kg Intake: Oral 1560 120 Other: Voiding Method Urinal Urinal # Voids 3 1 - Exam General: chronically ill appearing, no distress, appears at stated age, temporal wastin Derm: warm, dry Head: atraumatic, normocephalic, symmetric Eyes: EOMI, no lid lag, anicteric sclera Mouth: no lip lesion, mucus membranes dry Cardiovascular: S1S2 reg, no murmur, positive posterior tibial pulse bilateral, Lungs: decreased bs bilateral, no rhonchi, no rales , no accessory muscle use Abdominal: soft, nontender to palpation, no guarding, no appreciable organomegaly Ext: + gross muscle atrophy, no edema, + contractures of b/l hands Neuro: CN II-XI grossly intact, muscle wasting b/l hands Psych: Alert, oriented, appropriate affect - Labs CBC & Chem 7: 08/27/18 06:34 08/27/18 06:34 Assessment and Plan Assessment: Progressive symmetric upper and lower extremity weakness -Concern for ALS versus other neurodegenerative process -MRI brain with mild white matter changes -neuro recs appreciated, will work on coordinating outpatient f/u with ALS clinic at [facility]. -ESR, CRP, LDH, and CPK all normal -PT/OT evaluation -await social work eval History of falls and Functional debility/ Inability to care for self -PT/OT eval -Case management - social work consult Severe protein calorie malnutrition with muscle wasting -Dietary recs -Protein supplementation Hypertension -Continue with lisinopril Dyslipidemia -Continue with statin therapy Acute on Chronic pain -Continue with home morphine doses - add norco prn, add xanax Constipation, resolved DVT prophylaxis: Lovenox Discussed with: Patient, nursing, significant other, Anticipated discharge: 24-48hours, will need safe discharge plan Anticipated discharge place: home with home health Time in the room 0852 time out of the room, 0937 total face to face time 45 minutes.
[2018-08-28] MEDS: LORATADINE 10 MG TAB PO SCH (13:19)
--- NOTE | 2018-08-28 19:29 | P.PN ---
Subjective Progress Note Date: 08/28/18 This patient is a 58 year old male who was seen yesterday in Neurology consultation for evaluation of severe progressive weakness. His neurologic exam findings and history suggests he may have ALS. We have recommended that the patient to be evaluated in the ALS Clinic at [facility] for a definitive diagnosis. The patient was seen by Gastroenterology and their recommendations have been noted. The patient continues to have generalized weakness. He did have a long discussion today with Dr. Doyle about the overall diagnosis of possible ALS and long-term outcome. We once again reiterated to the patient and his who is at bedside that it would be best to see the specialist at [facility] where they would use a multidisciplinary approach for assessment and treatment. We have scheduled the patient for MRI of the cervical spine. We will try to have this completed tomorrow and once this is done and the patient may be considered for discharge home. We would like to rule out any possibility of severe cervical spondylosis. His overall prognosis at this time remains very guarded. We will continue close neurological follow-up for the patient during this admission. Objective - Vital Signs Vital signs: Vital Signs Temp 97.7 F 08/28/18 05:00 Pulse 76 08/28/18 05:00 Resp 16 08/28/18 05:00 BP 113/63 08/28/18 05:00 Pulse Ox 97 08/28/18 05:00 Intake & Output 08/27/18 08/28/18 08/28/18 18:59 06:59 18:59 Intake Total 1560 120 Balance 1560 120 Weight 54.5 kg Intake: Oral 1560 120 Other: Voiding Method Urinal Urinal # Voids 3 1 - Exam Physical Examination: PHYSICAL EXAMINATION: Patient is resting comfortably in bed. VITAL SIGNS: Blood pressure is [109/69]. Heart rate is [65]. Respiration is [16] . Temperature is [96.4]. HEENT: Head is atraumatic, neck is supple, there were no carotid bruits. CHEST: Lungs are clear to auscultation and percussion. CARDIAC: S1, S2 normal rate and rhythm. There is no murmur. ABDOMEN: Soft and nontender. Bowel sounds are present. EXTREMITIES: There is no pedal edema. Peripheral pulses are present. Neurological examination: Patient's neurological examination is unchanged from yesterday. He continues to have profound weakness in both upper and lower extremities with muscle atrophy. - Labs CBC & Chem 7: 08/27/18 06:34 08/27/18 06:34 Assessment and Plan (1) Motor neuron disease Current Visit: Yes Status: Acute Code(s): G12.20 - MOTOR NEURON DISEASE, UNSPECIFIED SNOMED Code(s): 02931546 (2) Muscle atrophy Current Visit: Yes Status: Acute Code(s): M62.50 - MUSCLE WASTING AND ATROPHY, NEC, UNSP SITE SNOMED Code(s): 30999826 (3) Inability to walk Current Visit: Yes Status: Acute Code(s): R26.2 - DIFFICULTY IN WALKING, NOT ELSEWHERE CLASSIFIED SNOMED Code(s): 321037767 (4) Weakness Current Visit: Yes Status: Acute Code(s): R53.1 - WEAKNESS SNOMED Code(s) : 10925162 (5) Weight loss Current Visit: Yes Status: Acute Code(s): R63.4 - ABNORMAL WEIGHT LOSS SNOMED Code(s): 85183186 Plan: This patient is a 58-year-old male who is been noted to have progressive generalized muscle weakness and muscle atrophy over the last 2 years. More recently in 6 months he has shown a very rapid decline in weight loss as well as inability to ambulate. He decided to come to the hospital yesterday for further evaluation. He is seen in neurology consultation today and his neurological exam is highly suggesting motor neuron disease such as ALS. We have recommended the patient to be evaluated in the ALS Clinic at [facility] for further confirmation of this suspicion and possible diagnosis. The patient underwent MRI of the brain which failed to reveal any acute changes. No evidence of acute infarction. The patient was seen by gastroenterology and the recommendations have been noted. We have recommended a MRI of the cervical spine to be done for further assessment. This patient's neurological exam and clinical findings of significant muscle wasting and muscle atrophy along with whole body fasciculations and profound weakness is highly suggesting a diagnosis of ALS. We have explained the natural history of this disease in detail to the patient and his at bedside. We are recommending the patient to have a evaluation in the ALS clinic at [facility] as soon as possible next week further more definitive workup for this condition including EMG study. We have also encouraged the to seek out social work and discharge planning to obtain a power wheelchair which would be very helpful for this patient. We will give further recommendations pending his MRI of the cervical spine results. In the meantime patient may continue with current treatment plans but really needs further workup and confirmation of this possible diagnosis at [facility] as soon as possible. His overall prognosis at this time remains very guarded. Case was discussed at length with the patient and his at bedside. All of their questions were answered. They are aware of his guarded condition. We will continue to follow him closely during this admission. We once again reiterated the need for referral to [facility] ALS clinic for more definitive diagnosis.
[2018-08-29 05:33] VITALS: RESP 16
[2018-08-29] MEDS: LISINOPRIL 20 MG TAB PO SCH (08:23)
[2018-08-29] MEDS: ENOXAPARIN 40 MG/0.4 ML SYRINGE SQ SCH (08:23)
[2018-08-29] MEDS: DOCUSATE 100 MG CAP PO SCH (08:23)
[2018-08-29] MEDS: ATORVASTATIN 20 MG TAB PO SCH (08:23)
[2018-08-29] MEDS: LORATADINE 10 MG TAB PO SCH (08:24)
[2018-08-29] MEDS: MORPHINE SULFATE ER 30 MG TABLET PO SCH (08:24)
--- NOTE | 2018-08-29 14:34 | P.PN ---
Progress Note - Text Progress Note Date: 08/29/18 Update note: Hoping to discharge patient today pending results of cervical spine MRI. Patient was seen by occupational therapy and due to his physical limitations. He was found to have significant distal muscle wasting in the right lower extremity consistent with his long-standing regional simplex dystrophy. He specifically has bilateral abductor pollicis brevis and first dorsal interosseous with significant wasting and no functional use of either thumb. Resting hand physician is clawlike with flexions of all DIPs and MIP. He has very limited bed mobility. Due to this the spasticity and mobility restrictions occupational therapy has recommended that he eventually will need a custom wheelchair that his electric with a custom seat cushion. He will need of ramp to enter and exit his home. In order to maintain range of motion and he would benefit from neutral resting hand splints when sleeping due to contractures. He needs a hospital bed as he hs limited bed mobility as is only able to partially bridge with left lower extremity. He needs a tub transfer bench as he is unable to flex at hip to get safely in and out of the tub. He will need a transfer light weight wheel chair when he leaves the house. He does need assessment for rehabilitation team and ALS specialist. Currently he is dependent with activities of daily living, unable to the enter the home unless lifted, unable to manage stairs, and is a high fall risk. He does not want to go to [place] [facility] and will need the above prescriptions to help with his progressive symmetric upper and lower extremity weakness that is probable ALS. DX: ALS/ neuromuscle disorder, gait instability, partial bed mobility, bilateral hand contractures. Formal note or discharge summary to follow pedning MRI results.
[2018-08-29 14:41] VITALS: BP 115/72; PULSE 65; TEMP 98.3
--- NOTE | 2018-08-29 16:29 | MR ---
EXAMINATION TYPE: MR cervical spine wo con DATE OF EXAM: 08/29/2018 COMPARISON: Prior MR cervical spine 06/04/2016 HISTORY: Progressive weakness, Patient possible severe cervical spondylosis vs ALS. TECHNIQUE: Multiplanar, multisequence images of the cervical spine were acquired. C2-C3: No evidence for degenerative disc disease. No disc bulge/herniation or protrusion. No Canal stenosis. Foramina are patent bilaterally. C3-C4: Some hypertrophic changes encroaches mildly on the foramina bilaterally. Small posterior disc bulge causes slight anterior mass effect on the thecal sac. No significant spinal stenosis. C4-C5: Small posterior disc bulge causes slight anterior mass effect on the thecal sac. No significan t spinal stenosis. Mild foraminal encroachment on the left due to lateral extension of endplate disc complex. C5-C6: Right posterior paracentral disc bulge causes anterolateral mass effect on the thecal sac, lat eral extension endplate disc complex encroaches on the foramina bilaterally. No significant central s tenosis. C6-C7: Small posterior disc bulge causes slight anterior mass effect on the thecal sac. No significan t foraminal encroachment or central stenosis. C7-T1: No evidence for degenerative disc disease. No disc bulge/herniation or protrusion. No Canal stenosis. Foramina are patent bilaterally. Cervical segments are intact. There is normal alignment. Some loss of disc signal compatible disc de siccation as on prior exam at the intervertebral levels. Cervical spinal cord is of normal signal. C raniovertebral junction relationships are within normal limits. Cervical vertebral bodies show stabl e height, alignment, bone marrow signal. IMPRESSION: Findings are similar to prior exam. Mild degenerative disc disease, disc bulges as described.
--- NOTE | 2018-08-29 17:16 | P.DS ---
Providers Date of admission: 08/28/18 14:45 Expected date of discharge: 08/29/18 Attending physician: Gissell Greenfield MD Consults: 08/26/18 23:39 Consult Physician Routine Consulting Provider: Baron Levine Consult Reason/Comments: ?ALS Do you want consulting provider notified?: Yes Primary care physician: Zenaida Keenan [facility] Course: Discharge Diagnosis: Progressive symmetric upper and lower extremity weakness with probable ALS Severe protein calorie malnutrition with BMI 16.3 History of fall functional debility Inability to care for self Hypertension Dyslipidemia Acute on chronic back and leg pain Constipation Liver hemangioma Hospital Course: Patient is a 58-year-old male known medical history of dyslipidemia, hypertension, crush injury to left leg resulting in RSD who presented to the ER with complaints of frequent falls, severe progressive weakness, and inability to care for himself. In the ER he underwent an extensive evaluation. His initial vital signs were within normal limits. Laboratory analysis is unremarkable. CT of abdomen and pelvis demonstrated a 3 cm right hepatic lobe lesion likely cavernous hemangioma, patient states that he was told he had a hemangioma when he had his crush injury [address] brain and chest x-ray were unremarkable. EKG showed no changes. Patient was admitted for further workup of his progressive weakness. He also has reported a 60 pound weight loss despite what he said it is a normal appetite. GI and neurology were consulted. Patient seen by neurology and concern for ALS. MRI with mild white matter periventricular changes. MRI cervical spine with mild degenerative changes unchanged sine 2016. Patient is stable for further outpatient evaluation Patient met with social work and case management given Rx for multiple assistive devices. Appt made with ALS Clinic through [facility] for tomorrow August 30, however patient declined appointment and will await call back for possible September. Case discussed with Dr. Ziegler and Dr. Kylah Dee. Home health with [facility] arranged. Patient seen and examined at bedside. Complains of back pain, leg pain, and feeeling frustrated. No nausea, shortness of breath, or chest pain. Vital signs reviewed and stable. General: chronically ill appearing, no distress, appears at stated age, temporal wastin Derm: warm, dry Head: atraumatic, normocephalic, symmetric Eyes: EOMI, no lid lag, anicteric sclera Mouth: no lip lesion, mucus membranes dry Cardiovascular: S1S2 reg, no murmur, positive posterior tibial pulse bilateral, Lungs: decreased bs bilateral, no rhonchi, no rales , no accessory muscle use Abdominal: soft, nontender to palpation, no guarding, no appreciable organomegaly Ext: + gross muscle atrophy, no edema, + contractures of b/l hands Neuro: CN II-XI grossly intact, muscle wasting b/l hands Psych: Alert, oriented, appropriate affect A total of 45 minutes of time were spent preparing this complex discharge summary . Pertinent Studies: MRI brain-mild periventricular white matter changes, no plaques CT brain-no acute process Chest x-ray-no acute process CT abdomen and pelvis-3 cm right hepatic lobe lesion likely cavernous hemangioma. MRI Cervical Spine- Mild degenerative changes- unchanged since 2016 Patient Condition at Discharge: Fair Plan - Discharge Summary Discharge Rx Participant: No New Discharge Prescriptions: New guaiFENesin [Mucinex] 600 mg PO Q12HR PRN #60 tablet.er PRN Reason: cough Sennosides [Senokot] 8.6 mg PO DAILY PRN #60 tab PRN Reason: Constipation Continue Simvastatin [Zocor] 40 mg PO DAILY Morphine Sulfate ER [Ms Contin] 30 mg PO BID Lisinopril 20 mg PO DAILY Discharge Medication List Lisinopril 20 mg PO DAILY 08/26/18 [History] Morphine Sulfate ER [Ms Contin] 30 mg PO BID 08/26/18 [History] Simvastatin [Zocor] 40 mg PO DAILY 08/26/18 [History] Sennosides [Senokot] 8.6 mg PO DAILY PRN #60 tab 08/29/18 [Rx] guaiFENesin [Mucinex] 600 mg PO Q12HR PRN #60 tablet.er 08/29/18 [Rx] Follow up Appointment(s)/Referral(s): Baron Levine MD [STAFF PHYSICIAN] - 2 Weeks Zenaida Keenan MD [Primary Care Provider] - 1-2 Days [facility], [NON-STAFF] - As Needed Activity/Diet/Wound Care/Special Instructions: [place] #[phone] [facility] [address]. Palmer Childress Office will call in 1-2 days to reschedule appointment Bring ID, insurance cards, test results and list of medications Main [facility] [address], [address] Regular diet Activity as tolerated scripts for equipment sent to [facility] - - pt to call with any questions. Please use Senokot as prescribed in addition to pericolace Discharge Disposition: HOME SELF-CARE
== END 2018-08-29 18:07 | disposition home health service (06) | DRG 56 ==
LOC: EC 15:41 → 3NMEDONC 19:38 → INTOOBSV 08-28 14:43 → OBSVTOIN 08-28 14:43
PROVIDERS: ADMIT Internal Medicine; ATTEND Internal Medicine
DX: G12.21 Amyotrophic lateral sclerosis (principal); E43 Unspecified severe protein-calorie malnutrition; R64 Cachexia; Z68.1 Body mass index [BMI] 19.9 or less, adult; S14.3XXA Injury of brachial plexus, initial encounter; G90.529 Complex regional pain syndrome I of unspecified lower limb; M24.541 Contracture, right hand; M24.542 Contracture, left hand; D18.03 Hemangioma of intra-abdominal structures; R29.6 Repeated falls; K30 Functional dyspepsia; K59.03 Drug induced constipation; T40.2X5A Adverse effect of other opioids, initial encounter; R25.3 Fasciculation; E78.5 Hyperlipidemia, unspecified; I10 Essential (primary) hypertension; M54.9 Dorsalgia, unspecified; M79.606 Pain in leg, unspecified; F17.200 Nicotine dependence, unspecified, uncomplicated; Z71.3 Dietary counseling and surveillance; Z79.891 Long term (current) use of opiate analgesic; Z79.899 Other long term (current) drug therapy; Z91.81 History of falling; Z87.81 Personal history of (healed) traumatic fracture
CPT/HCPCS: 36415; 70450; 70551; 71046; 72141; 74177; 80053; 81001; 82550; 83615; 83735; 84100; 84443; 85025; 85610; 85652; 85730; 86140; 87390; 93005; 96360; 96361; 99285